=== PATIENT | female | born 1990 | race African-American/Black ===

== ENCOUNTER 2017-12-23 19:20 | Inpatient (IN) | payer MEDICAID ==
[~2017-12-23] VITALS: Ht 172.7 cm; Wt 58.1 kg
[2017-12-23 19:27] VITALS: BP_SYST 111
[2017-12-23] MEDS ORDERED: NACL 0.9% 1,000 ML IV ONE (19:50)
[2017-12-23] MEDS ORDERED: ACETAMINOPHEN 500 MG TABLET PO ONE (20:00)
[2017-12-23] MEDS ORDERED: MORPHINE 4 MG/ML INJ. SYRINGE IVP ONE ×3 (20:00→21:45)
[2017-12-23] MEDS ORDERED: ONDANSETRON HCL 4 MG/2 ML VIAL IVP ONE ×2 (20:00→23:00)
[2017-12-23 20:03] LABS: BILIRUBIN,URINE NEGATIVE (NEGATIVE); BLOOD, URINE 2+ (NEGATIVE); CLARITY/URINE CLEAR (CLEAR); COLOR,URINE YELLOW (YELLOW); GLUCOSE,URINE NEGATIVE (NEGATIVE); KETONES,URINE NEGATIVE (NEGATIVE); LEUKOCYTE ESTERASE ,URINE NEGATIVE (NEGATIVE); NITRITE, URINE NEGATIVE (NEGATIVE); PROTEIN URINE NEGATIVE (NEGATIVE); UROBILINOGEN,URINE 0.2 (0.2-1.0)
[2017-12-23 20:13] LABS: HEMATOCRIT 37.7 % (36-48); HEMOGLOBIN 12.4 g/dL (12.0-16.0); LYMPHOCYTES # (AUTO) 0.7 K/uL (1.0-5.5); LYMPHOCYTES % (AUTO) 10.7 % (20.5-51.5); MEAN CORPUSCULAR HEMOGLOBIN 27 pg (27-31); MEAN CORPUSCULAR HGB CONC 33 % (32-36); MEAN CORPUSCULAR VOLUME 82 fL (79.0-98.0); MONOCYTES # (AUTO) 0.5 K/uL (0.0-1.0); MONOCYTES % (AUTO) 7.1 % (1.7-9.3); PLATELET COUNT (AUTO) 230 K/uL (130-430); RED BLOOD CELL COUNT(AUTO) 4.61 MIL/uL (4.2-6.2); RED CELL DISTRIBUTION WIDTH 14.2 % (9.0-15.0)
[2017-12-23 20:25] LABS: BASOPHILS % (AUTO) 0.7 % (0.0-2.0); NEUTROPHILS # (AUTO) 5.8 K/uL (1.8-7.7); NEUTROPHILS % (AUTO) 81.5 % (40.0-70.0)
[2017-12-23 20:28] LABS: BACTERIA,URINE RARE /HPF (None Seen); WBC,URINE 0-3 /HPF (0-3)
[2017-12-23 20:33] LABS: CALCIUM 9.1 mg/dL (8.4-11.0); CREATININE 0.87 mg/dL (0.55-1.30); POTASSIUM 3.5 mmol/L (3.5-5.1)
[2017-12-23 20:36] LABS: PROTHROMBIN TIME 10.2 SECS (9.5-12.5)
[2017-12-23 20:38] LABS: ALBUMIN 4.1 g/dL (3.4-4.8); TOTAL BILIRUBIN 0.3 mg/dL (0.0-1.0)
[2017-12-23] MEDS ORDERED: DIPHENHYDRAMINE INJ 50 MG/ML VIAL ONE (21:11)
[2017-12-23] MEDS ORDERED: methylPREDNISolone SOD SUCC/PF 62.5 MG/ML VIAL ONE (21:12)
[2017-12-23] MEDS ORDERED: DIPHENHYDRAMINE INJ 50 MG/ML VIAL IVP ONE ×2 (21:15→22:15)
[2017-12-23] MEDS ORDERED: methylPREDNISolone SOD SUCC/PF 62.5 MG/ML VIAL IVP ONE (21:15)
[2017-12-23] MEDS ORDERED: IBUPROFEN 800 MG TABLET PO ONE (21:30)
[2017-12-23] MEDS ORDERED: fentaNYL CITRATE/PF 100 MCG/2 ML AMP IVP ONE (23:00)
[2017-12-23 23:48] LABS: BARBITURATE, URINE NEGATIVE (NEG <=200); BENZODIAZEPINE, URINE NEGATIVE (NEG <=150); CANNABINOID, URINE POSITIVE (NEG <=50); COCAINE, URINE NEGATIVE (NEG <=150); METHAMPHETAMINES SCREEN,URINE NEGATIVE (NEG <=500); OPIATE, URINE NEGATIVE (NEG <=100); PHENCYCLIDINE SCREEN,URINE NEGATIVE (NEG <=25); UR TRICYCLIC ANTIDEPRESSANTS NEGATIVE (NEG <=300); URINE AMPHETAMINE NEGATIVE (NEG <=500); URINE METHADONE NEGATIVE (NEG <=200); URINE OXYCODONE SCREEN NEGATIVE (NEG <=100); URINE PROPOXYPHENE SCREEN NEGATIVE (NEG <=300)
[2017-12-24] MEDS ORDERED: LIDOCAINE 1%, 20 ML MDV 20 ML ONE (00:02)
[2017-12-24] MEDS ORDERED: cefTRIAXone 1 GM IVPB PREMIX 50 ML IV ONE (00:30)
[2017-12-24] MEDS ORDERED: MORPHINE 2 MG/ML INJ. SYRINGE IVP PRN (00:30)
[2017-12-24] MEDS ORDERED: fentaNYL CITRATE/PF 100 MCG/2 ML AMP IVP ONE (00:30)
[2017-12-24] MEDS ORDERED: ONDANSETRON HCL 4 MG/2 ML VIAL IVP ONE (00:30)
[2017-12-24] MEDS ORDERED: NS 1000 ML BAG IV ONE (00:30)
[2017-12-24 01:00] VITALS: BP_SYST 118
[2017-12-24 01:51] LABS: CSF APPEARANCE CLEAR (CLEAR); CSF COLOR COLORLESS (COLORLESS); CSF LYMPHOCYTES 100 % (40-80); CSF RED BLOOD CELL COUNT 167 /uL (0-0); CSF TUBE NUMBER 4; CSF WHITE BLOOD CELL COUNT 3 /uL (0-5)
[2017-12-24 02:50] LABS: CSF GLUCOSE 66 mg/dL (40-70)
[2017-12-24 03:01] LABS: CSF PROTEIN 27 mg/dL (15-45)
[2017-12-24] MEDS ORDERED: MORPHINE 4 MG/ML INJ. SYRINGE ONE (04:19)
[2017-12-24 08:00] VITALS: BP_SYST 109
[2017-12-24] MEDS ORDERED: OSELTAMIVIR PHOSPHATE 75 MG CAPSULE PO ONE (09:30)
[2017-12-24] MEDS: ONDANSETRON HCL 4 MG/2 ML VIAL IVP PRN (10:09)
[2017-12-24] MEDS ORDERED: IBUPROFEN 800 MG TABLET PO PRN (10:15)
[2017-12-24] MEDS: MORPHINE 4 MG/ML INJ. SYRINGE IVP PRN ×2 (11:00→15:25)
[2017-12-24 12:00] VITALS: BP_SYST 113
[2017-12-24 18:09] VITALS: BP_SYST 100
[2017-12-24 20:00] VITALS: BP_SYST 107
[2017-12-24] MEDS: OSELTAMIVIR PHOSPHATE 75 MG CAPSULE PO SCH (21:11)
[2017-12-24] MEDS: ACETAMINOPHEN 325 MG TABLET PO PRN (21:21)
[2017-12-25] MEDS: ONDANSETRON HCL 4 MG/2 ML VIAL IVP PRN ×6 (00:08→21:42)
[2017-12-25] MEDS: MORPHINE 4 MG/ML INJ. SYRINGE IVP PRN ×6 (00:09→21:42)
[2017-12-25 02:10] VITALS: BP_SYST 110
[2017-12-25] MEDS: ACETAMINOPHEN 325 MG TABLET PO PRN (03:35)
[2017-12-25 08:00] VITALS: BP_SYST 97
[2017-12-25] MEDS: OSELTAMIVIR PHOSPHATE 75 MG CAPSULE PO SCH ×2 (08:00→21:38)
[2017-12-25] MEDS ORDERED: DIPHENHYDRAMINE INJ 50 MG/ML VIAL IVP PRN (09:00)
[2017-12-25 18:55] VITALS: BP_SYST 105
[2017-12-25 19:55] VITALS: BP_SYST 105
[2017-12-26 01:29] VITALS: BP_SYST 102
[2017-12-26] MEDS: ONDANSETRON HCL 4 MG/2 ML VIAL IVP PRN ×2 (02:56→08:32)
[2017-12-26] MEDS: MORPHINE 4 MG/ML INJ. SYRINGE IVP PRN ×2 (02:57→08:32)
[2017-12-26] MEDS: OSELTAMIVIR PHOSPHATE 75 MG CAPSULE PO SCH (08:33)
== END 2017-12-26 11:09 | disposition left against medical advice (07) | DRG 51 ==
LOC: SED 19:20 → SMU 12-24 00:27
PROVIDERS: ADMIT Internal Medicine Hospice and Palliative Medicine; ATTEND Internal Medicine Hospice and Palliative Medicine
PROC: 009U3ZX Drainage of Spinal Canal, Percutaneous Approach, Diagnostic (ICD-10-PCS; principal; 2017-12-23)
DX: A87.9 Viral meningitis, unspecified (principal); I10 Essential (primary) hypertension; G43.909 Migraine, unspecified, not intractable, without status migrainosus; J10.1 Influenza due to other identified influenza virus with other respiratory manifestations; Z53.21 Procedure and treatment not carried out due to patient leaving prior to being seen by health care provider; Z88.6 Allergy status to analgesic agent; Z88.1 Allergy status to other antibiotic agents; Z90.49 Acquired absence of other specified parts of digestive tract; Z98.51 Tubal ligation status
CPT/HCPCS: 36415; 70450-TC; 70551; 71045; 80053; 80307; 81000-TC; 81025; 82550-TC; 82947-TC; 83605; 83690-TC; 84157-TC; 85025; 85048; 85610-TC; 85730-TC; 86710; 87040-TC; 87070-TC; 87081; 87086; 87205-TC; 89051-TC; 93005; 96361; 96375; 96376; 99285; G9035; J0696; J1200; J2001; J2270; J2405; J2930; J3010; J7030; J7040; J7060